=== PATIENT | female | born 1955 | race American Indian/Alaskan Native ===

== ENCOUNTER 2017-02-01 08:32 | Outpatient (CLI) | payer BC ==
--- NOTE | 2017-02-01 11:59 | Mammography Report ---
BONE DEXA:02/01/17 08:32:00 CLINICAL: History of left breast cancer and on an aromatase inhibitor. No comparison. TECHNIQUE: Two site bone DEXA performed on an Hologic scanner. FINDINGS: The average BMD of the lumbar spine L1-L4 is 1.101g/cm squared with a T-score of -0.4 and a Z-score of +1.2. The average BMD of the left hip is 0.978g/cm squared with a T-score of -0.3 and a Z-score of +0.5. IMPRESSION: WHO classification: Normal with average fracture risk based on both spine and left hip measurements. RECOMMENDATION: Clinical correlation and routine screening. DEFINITIONS: BMD = Bone Mineral Density T-score = BMD related to mean peak bone mass of young adult (mean expressed in Standard Deviation) Z-score = Age matched BMD expressed in SD World Health Organization (WHO) Diagnostic Criteria Normal T-score > -1 SD Osteopenia T-score between -1 and -2.4 SD Osteoporosis T-score -2.5 SD or below NOTE: BMD is not the only risk factor for fracture. One should also consider factors such as the patient's age, risk of falling, previous osteoporotic fracture, family history of osteoporotic fractures, current smoker, and low body weight. Z-scores are not calculated if >80 years of age.
== END 2017-02-01 08:33 | disposition home or self-care (01) ==
LOC: SPVWC 08:32
PROVIDERS: ATTEND Internal Medicine Hematology & Oncology
DX: Z13.820 Encounter for screening for osteoporosis (principal); Z85.3 Personal history of malignant neoplasm of breast; Z79.811 Long term (current) use of aromatase inhibitors
CPT/HCPCS: 77080

== ENCOUNTER 2020-03-18 10:57 | Outpatient (CLI) | payer BC ==
--- NOTE | 2020-03-18 12:43 | Mammography Report ---
CLINICAL DATA: LEFT BREAST CANCER/POST MENOPAUSAL TECHNICAL DATA: Dual energy x-ray absorptiometry evaluation for bone mineral density is performed with attention to t he lumbar spine, right hip, and left hip. A [employer] unit is utilized. FINDINGS: The weighted average bone mineral density (BMD) of the lumbar spine using L1 through L4 vertebrae elinor sures 1.112 gm/cm2, corresponding to a T-score of -0.3. The left femoral neck bone mineral density measures 0.821 gm/cm2, corresponding to a T-score of -0.9. Significance of DEXA results: 1. World Health Organization (WHO) criteria for diagnosis: a) Normal T-score -1.0 or above b) Osteopenia T-score between -1.0 and -2.5 c) Osteoporosis T-score -2.5 or below 2. The DEXA diagnosis of osteopenia or osteoporosis does not exclude secondary causes of bone loss. Secondary causes of decreased bone mineral density include osteomalacia, metabolic bone disorders an d endocrinopathies, malabsorption, certain drugs, and marrow-based neoplastic disorders. 3. The risk of osteoporotic fracture increases approximately 1.5 to 3 fold for each standard deviati on decrease in bone mineral density (BMD). Decreased bone mineral density is not the only risk facto r for fracture. Other risk factors include patient age, risk of falling, previous osteoporotic fract ure, and family history of osteoporosis. IMPRESSION: Normal bone density exam as noted Signer Name: Weston Bright MD Signed: 03/18/2020 12:38 PM Workstation Name: [employer]
== END 2020-03-18 10:58 | disposition home or self-care (01) ==
LOC: SPVWC 10:57
PROVIDERS: ATTEND Internal Medicine Hematology & Oncology
DX: C50.412 Malignant neoplasm of upper-outer quadrant of left female breast (principal); N95.1 Menopausal and female climacteric states; Z79.811 Long term (current) use of aromatase inhibitors
CPT/HCPCS: 77080